=== PATIENT | male | born 1995 | race Caucasian/White ===

== ENCOUNTER 2020-10-04 19:03 | Emergency (ER) | payer SELFPAY ==
[~2020-10-04] VITALS: Ht 185.4 cm; Wt 72.7 kg
[2020-10-04] MEDS ORDERED: IV NORMAL SALINE 1000ML BAG 1,000 ML IV ONE ×2 (19:15→20:30)
[2020-10-04 19:38] LABS: BASO # 0.1 x10^3/uL (0.0-0.2); BASO % 1 % (0-3); EOS # 0.2 x10^3/uL (0.0-0.7); EOS % 3 % (0-3); HEMATOCRIT 38.8 % (39.0-53.0); HEMOGLOBIN 13.6 g/dL (13.0-17.5); LYMPH # 1.5 x10^3/uL (1.0-4.8); LYMPH % 20 % (24-48); MEAN CORPUSCULAR HEMOGLOBIN 31 pg (25-35); MEAN CORPUSCULAR HGB CONC 35 g/dL (31-37); MEAN CORPUSCULAR VOLUME 89 fL (79-100); MONO # 0.7 x10^3/uL (0.0-1.1); MONO % 9 % (0-9); NEUT # 5.2 x10^3/uL (1.8-7.7); NEUT % 67 % (31-73); PLATELET COUNT 242 x10^3/uL (140-400); RED BLOOD COUNT 4.35 x10^6/uL (4.30-5.70); RED CELL DISTRIBUTION WIDTH 12.8 % (11.5-14.5); WHITE BLOOD COUNT 7.7 x10^3/uL (4.0-11.0)
[2020-10-04 19:46] LABS: CALCIUM 8.5 mg/dL (8.5-10.1); GFR 89.6; POTASSIUM 3.6 mmol/L (3.5-5.1)
[2020-10-04 19:51] LABS: ACETAMIN < 2 mcg/ml (10-30); ETHANOL < 10 mg/dL (0-10); SALIC < 2.8 mg/dL (2.8-20.0)
[2020-10-04 19:52] LABS: ALBUMIN 3.9 g/dL (3.4-5.0); ALBUMIN/GLOBULIN RATIO 1.7 (1.0-1.7); TOTAL BILIRUBIN 0.6 mg/dL (0.2-1.0); TOTAL PROTEIN 6.2 g/dL (6.4-8.2)
--- NOTE | 2020-10-04 20:20 | PHYS DOC ---
General Adult EDM: Chief Complaint: ALTERED MENTAL STATUS HPI: HPI: Patient is a 25 year old male who presents with was found by EMS and police [place] and he is only alert and oriented to h imself. Patient states he is confused but easily reoriented. Patient is following commands. He is alert and awake. He does admit to meth but states he does not remember using any or anything else. Patient appears homeless. Denies chest pain, dizziness, numbness or tingling, headache, shortness of breath, cough, abdominal pain, nausea, vomiting, diarrhea, syncope. (NÉSTOR ESCOBAR APRN) Review of Systems: Review of Systems: Constitutional: Denies fever or chills. [] Eyes: Denies change in visual acuity. [] HENT: Denies nasal congestion or sore throat. [] Respiratory: Denies cough or shortness of breath. [] Cardiovascular: Denies chest pain or edema. [] GI: Denies abdominal pain, nausea, vomiting, bloody stools or diarrhea. [] : Denies dysuria. [] Musculoskeletal: Denies back pain or joint pain. [] Integument: Denies rash. [] Neurologic: Denies headache, focal weakness or sensory changes. + Altered mental status [] Endocrine: Denies polyuria or polydipsia. [] Lymphatic: Denies swollen glands. [] Psychiatric: Denies depression or anxiety. [] (NÉSTOR ESCOBAR APRN) Heart Score: C/O Chest Pain: No Risk Factors: Risk Factors: DM, Current or recent (<one month) smoker, HTN, HLP, family history of CAD, obesity. Risk Scores: Score 0 - 3: 2.5% MACE over next 6 weeks - Discharge Home Score 4 - 6: 20.3% MACE over next 6 weeks - Admit for Clinical Observation Score 7 - 10: 72.7% MACE over next 6 weeks - Early Invasive Strategies (NÉSTOR ESCOBAR APRN) Current Medications: Current Medications Medications (Trade) Dose Ordered Sig/Carina Start Time Stop Time Status Last Admin Dose Admin Sodium Chloride 1,000 ml @ 1,000 mls/hr 1X ONCE 10/04/20 19:15 10/04/20 20:14 10/04/20 19:15 1,000 MLS/HR (BAFUS,NÉSTOR M HAY RAKE OPERATOR) Allergies: Allergies: Allergies Coded Allergies Type Severity Reaction Last Updated Verified No Known Drug Allergies 10/04/20 No (NÉSTOR ESCOBAR APRN) Physical Exam: PE: Constitutional: Well developed, well nourished, no acute distress, non-toxic appearance. [] HENT: Normocephalic, atraumatic, bilateral external ears normal, oropharynx moist, no oral exudates, nose normal. [] Eyes: PERRLA, EOMI, conjunctiva normal, no discharge. [] Neck: Normal range of motion, no tenderness, supple, no stridor. [] Cardiovascular:Heart rate regular rhythm, no murmur [] Lungs & Thorax: Bilateral breath sounds clear to auscultation [] Abdomen: Bowel sounds normal, soft, no tenderness, no masses, no pulsatile masses. [] Skin: Warm, dry, no erythema, no rash. Dirt all over skin [] Back: No tenderness, no CVA tenderness. [] Extremities: No tenderness, no cyanosis, no clubbing, ROM intact, no edema. [] Neurologic: Alert and oriented X 1, normal motor function, normal sensory function, no focal deficits noted. [] Psychologic: Affect normal, judgement normal, mood normal. [] (NÉSTOR ESCOBAR HAY RAKE OPERATOR) Current Patient Data: Labs: Laboratory Tests Test 10/04/20 19:25 White Blood Count 7.7 x10^3/uL (4.0-11.0) Red Blood Count 4.35 x10^6/uL (4.30-5.70) Hemoglobin 13.6 g/dL (13.0-17.5) Hematocrit 38.8 % (39.0-53.0) L Mean Corpuscular Volume 89 fL (79-100) Mean Corpuscular Hemoglobin 31 pg (25-35) Mean Corpuscular Hemoglobin Concent 35 g/dL (31-37) Red Cell Distribution Width 12.8 % (11.5-14.5) Platelet Count 242 x10^3/uL (140-400) Neutrophils (%) (Auto) 67 % (31-73) Lymphocytes (%) (Auto) 20 % (24-48) L Monocytes (%) (Auto) 9 % (0-9) Eosinophils (%) (Auto) 3 % (0-3) Basophils (%) (Auto) 1 % (0-3) Neutrophils # (Auto) 5.2 x10^3/uL (1.8-7.7) Lymphocytes # (Auto) 1.5 x10^3/uL (1.0-4.8) Monocytes # (Auto) 0.7 x10^3/uL (0.0-1.1) Eosinophils # (Auto) 0.2 x10^3/uL (0.0-0.7) Basophils # (Auto) 0.1 x10^3/uL (0.0-0.2) Sodium Level 141 mmol/L (136-145) Potassium Level 3.6 mmol/L (3.5-5.1) Chloride Level 104 mmol/L (98-107) Carbon Dioxide Level 28 mmol/L (21-32) Anion Gap 9 (6-14) Blood Urea Nitrogen 10 mg/dL (8-26) Creatinine 1.0 mg/dL (0.7-1.3) Estimated GFR (Cockcroft-Gault) 89.6 BUN/Creatinine Ratio 10 (6-20) Glucose Level 103 mg/dL (70-99) H Calcium Level 8.5 mg/dL (8.5-10.1) Total Bilirubin 0.6 mg/dL (0.2-1.0) Aspartate Amino Transferase (AST) 17 U/L (15-37) Alanine Aminotransferase (ALT) 17 U/L (16-63) Alkaline Phosphatase 49 U/L (46-116) Troponin I Quantitative < 0.017 ng/mL (0.000-0.055) PT-Uti-A-Type Natriuretic Peptide 14 pg/mL (0-124) Total Protein 6.2 g/dL (6.4-8.2) L Albumin 3.9 g/dL (3.4-5.0) Albumin/Globulin Ratio 1.7 (1.0-1.7) Salicylates Level < 2.8 mg/dL (2.8-20.0) L Salicylate Last Dose Date Unknown Salicylate Last Dose Time Unknown Acetaminophen Level < 2 mcg/ml (10-30) L Acetaminophen Last Dose Date Unknown Acetaminophen Last Dose Time Unknown Ethyl Alcohol Level < 10 mg/dL (0-10) Laboratory Tests 10/04/20 19:25 Laboratory Tests 10/04/20 19:25 (NÉSTOR ESCOBAR APRN) EKG: EK and read by Dr. Merino is a sinus rhythm and no STEMI (NÉSTOR ESCOBAR APRN) Radiology/Procedures: Radiology/Procedures: [] Impression: [id number] [place] [address] IMAGING REPORT Signed PATIENT: PARAMJIT FREDERICK ACCOUNT: [id number] : 1995 LOCATION: ER AGE: 25 SEX: M EXAM STATUS: PRE ER ORD. PHYSICIAN: NÉSTOR ESCOBAR APRN REASON: ams PROCEDURE: PORTABLE CHEST 1V EXAM: AP View of the chest DATE: 10/04/2020 7:46 PM INDICATION: Reason: ams / Spl. Instructions: / History: COMPARISON: No Prior FINDINGS: The heart is not enlarged. Mediastinal and hilar contours are normal. No focal parenchymal airspace opacity. No pleural effusion or pneumothorax. IMPRESSION: 1. No radiographic evidence for acute cardiopulmonary process. Electronically signed by: Carlton Herrera MD (10/04/2020 8:33 PM) [facility] DICTATED and SIGNED BY: CARLTON HERRERA MD DATE: 10/04/[id number] 0 [id number] [place] [address] IMAGING REPORT Signed PATIENT: PARAMJIT FREDERICK ACCOUNT: [id number] : 1995 LOCATION: ER AGE: 25 SEX: M EXAM STATUS: PRE ER ORD. PHYSICIAN: NÉSTOR ESCOBAR APRN REASON: ams PROCEDURE: CT HEAD WO CONTRAST Exam: CT head INDICATION: Altered mental status TECHNIQUE: Sequential axial images through the head were obtained without the administration of IV contrast. Exposure: One or more of the following in the visualized dose reduction techniques were utilized for this examination: 1. Automated exposure control 2. Adjustment of the MA and/or KV according to patient size 3. Use of iterative of reconstructive technique Comparisons: None FINDINGS: No focal parenchymal lesion or hemorrhage is identified. There is no midline shift or sulcal effacement. No acute vascular territory infarction is identified. Gama-white distinction is preserved. The ventricular system is within normal limits without compression hydrocephalus. The basal cisterns are well maintained. The visualized portions of the paranasal sinuses and mastoid air cells are well- pneumatized. No acute fractures. IMPRESSION: No acute intracranial abnormality. Electronically signed by: Latisha Munoz MD (10/04/2020 8:34 PM) [facility] DICTATED and SIGNED BY: LATISHA MUNOZ MD DATE: 10/04/[id number] 0 (NÉSTOR ESCOBAR APRN) Course & Med Decision Making: Course & Med Decision Making Pertinent Labs and Imaging studies reviewed. (See chart for details) See HPI. Patient is calm and cooperative. Speaks in full clear sentences. Alert and oriented to himself. Patient appears slightly paranoid. He is resting comfortably in bed. Pupils are at a 2 bilaterally and equal. No extremity edema. No sores or lacerations or abrasions. No trauma to his body. Denies falling or hitting his head recently. Vital signs within normal limits. He is afebrile. EKG shows a sinus rhythm and no STEMI. 2235: Upon reassessment week got the patient up and is very wobbly on his feet and seems to fall asleep while standing. He begins to fall to the side as he standing. He is gotten 2 L of normal saline. Blood work is unremarkable. He is now oriented x4 but still very drowsy. Patient is positive for both cocaine and meth. Spoke with Dr. Merino concerning this patient and Kathryn with PAT team. She states she will going and speak with him. 2339: Kathryn wanted to try to speak with the patient but he is too drowsy. She states that she will try back in the morning we can try to get him possible placement. Patient handed over to Dr Merino. [] (NÉSTOR ESCOBAR APRN) Course & Med Decision Making I received signout from [facility]GS[facility] SALVAGE regarding patient's care. Patient is awaiting sober reevaluation, substance abuse on board. [facility]GS[facility] SALV[facility] did place a PAT team assessment regarding his drug use. Per reassessment by RN, pt walking, with steady gait and decision making capacity. Pt denies any suicidal or homicidal ideations. No indication for emergent PAT consult which was not performed. Patient stable at time of discharge. Discharge papers prepared by my [facility]. (CHAUNCEY MERINO DO) Terri Disclaimer: Terri Disclaimer: This electronic medical record was generated, in whole or in part, using a voice recognition dictation system. (NÉSTOR ESCOBAR APRN) Departure Departure Impression: Primary Impression: Cocaine abuse Additional Impressions: Amphetamine abuse Altered mental status associated with intoxication Disposition: 01 HOME / SELF CARE / HOMELESS Condition: STABLE Patient Instructions: Amphetamine Abuse, Cocaine Abuse and Chemical Dependency Additional Instructions: Stop doing drugs. Drink plenty of fluids. NÉSTOR ESCOBAR APRN Oct 04, 2020 20:20 CHAUNCEY MERINO DO Oct 05, 2020 21:17
--- NOTE | 2020-10-04 20:36 | RAD ---
Exam: CT head INDICATION: Altered mental status TECHNIQUE: Sequential axial images through the head were obtained without the administration of IV co ntrast. Exposure: One or more of the following in the visualized dose reduction techniques were utilized for this examination: 1. Automated exposure control 2. Adjustment of the MA and/or KV according to patient size 3. Use of iterative of reconstructive technique Comparisons: None FINDINGS: No focal parenchymal lesion or hemorrhage is identified. There is no midline shift or sulcal effaceme nt. No acute vascular territory infarction is identified. Gama-white distinction is preserved. The ventricular system is within normal limits without compression hydrocephalus. The basal cisterns are well maintained. The visualized portions of the paranasal sinuses and mastoid air cells are well-pneumatized. No acute fractures. IMPRESSION: No acute intracranial abnormality. Electronically signed by: Latisha Wright MD (10/04/2020 8:34 PM) [facility]
--- NOTE | 2020-10-04 20:36 | RAD ---
EXAM: AP View of the chest DATE: 10/04/2020 7:46 PM INDICATION: Reason: ams / Spl. Instructions: / History: COMPARISON: No Prior FINDINGS: The heart is not enlarged. Mediastinal and hilar contours are normal. No focal parenchymal airspace opacity. No pleural effusion or pneumothorax. IMPRESSION: 1. No radiographic evidence for acute cardiopulmonary process. Electronically signed by: Carlton Morris MD (10/04/2020 8:33 PM) [facility]AN[facility]
--- NOTE | 2020-10-04 20:42 | EKG ---
[facility] [address] [place] [address] Test Date: 2020-10-04 Test Time: 19:09:55 Pat Name: PARAMJIT FREDERICK Department: Room: Gender: M [employer]: : 1995 Requested By: NÉSTOR ESCOBAR Order Number: [id number] Reading MD: Measurements Intervals [place] Rate: 74 P: 68 VA: 180 QRS: 87 QRSD: 100 T: 69 QT: 370 QTc: 416 Interpretive Statements SINUS RHYTHM NO SPECIFIC ECG ABNORMALITIES RI6.01 No previous ECG available for comparison
[2020-10-04 22:53] LABS: BILIRUBIN,URINE NEGATIVE (NEG); CLARITY,URINE CLEAR; COLOR,URINE YELLOW; NITRITE,URINE NEGATIVE (NEG); PH,URINE 5.5 (<5.0-8.0); PROTEIN,URINE NEGATIVE (NEG-TRACE)
[2020-10-04 22:56] LABS: BACTERIA,URINE 0 /HPF (0-FEW); RBC,URINE 0 /HPF (0-2); WBC,URINE 0 /HPF (0-4)
[2020-10-04 22:57] LABS: BARBITURATES NEG (NEG); BENZODIAZEPINES NEG (NEG); CANNABINOIDS NEG (NEG); COCAINE POS (NEG); METHADONE NEG (NEG); OPIATES NEG (NEG); PHENCYCLIDINE NEG (NEG)
[2020-10-04 23:00] LABS: AMPHETAMINE/METHAMPHETAMINE POS (NEG)
[2020-10-05 04:43] VITALS: BP 118/93
== END 2020-10-05 04:59 | disposition home or self-care (01) ==
LOC: ER 19:03
DX: F14.129 Cocaine abuse with intoxication, unspecified (principal); F15.10 Other stimulant abuse, uncomplicated; R41.82 Altered mental status, unspecified; Z59.0 Homelessness
CPT/HCPCS: 36415; 70450; 71045; 80053; 80307; 80329; 81001; 82550; 83880; 84484; 85025; 93005; 96360; 96361; 99285; G0480; J7030